=== PATIENT | male | born 2000 | race African-American/Black ===

== ENCOUNTER 2021-05-23 00:14 | Emergency (ER) | payer OTHER ==
[2021-05-23 00:21] VITALS: BMI 30.2
[2021-05-23 00:36] VITALS: BP 128/63; PULSE 95; TEMP 99
== END 2021-05-23 01:53 | disposition home or self-care (01) ==
LOC: FER 00:14
DX: R09.81 Nasal congestion (principal)
CPT/HCPCS: 99281-25